=== PATIENT | male | born 1980 | race Caucasian/White ===

== ENCOUNTER 2017-07-17 15:19 | Emergency (ER) | payer BC ==
[2017-07-17 15:37] VITALS: BP 155/95
--- NOTE | 2017-07-17 16:06 | ED ---
Skin Complaint - HPI Summary HPI Summary: 36 yr old male with the complaint of tick bite right flank. Onset 6 pm yesterday. [place] and found couple tick on his clothes. He found one attached to his side this afternoon. He pulled part of it off. No other complaints. He has redness form the area where tick is attached about 1 inch in diameter. - History of Current Complaint Chief Complaint: [facility]CSkin Time Seen by Provider: 07/17/17 15:31 Stated Complaint: TICK Pain Intensity: 0 - Allergy/Home Medications Allergies/Adverse Reactions: Allergies Allergy/AdvReac Type Severity Reaction Status Date / Time Penicillins Allergy Rash Verified 07/17/17 15:39 PMH/Surg Hx/FS Hx/Imm Hx - Surgical History Surgery Procedure, Year, and Place: 2011 hernia surgery Infectious Disease History: No Infectious Disease History: Denies: Traveled Outside the [place] in Last 30 Days - Family History Known Family History: Positive: None - Social History Occupation: Employed Full-time Alcohol Use: Occasionally Substance Use Type: Reports: None Smoking Status (MU): Never Smoked Tobacco Review of Systems Constitutional: Negative Positive: Other - tick bite All Other Systems Reviewed And Are Negative: Yes Physical Exam Triage Information Reviewed: Yes Vital Signs On Initial Exam: Initial Vitals Temp Pulse Resp BP Pulse Ox 98.9 F 85 16 155/95 99 07/17/17 15:34 07/17/17 15:34 07/17/17 15:34 07/17/17 15:34 07/17/17 15:34 Vital Signs Reviewed: Yes Appearance: Positive: Well-Appearing, No Pain Distress Skin: Positive: Other - there is part of a tick imbedded in right flank. There is 2 inches diameter redness around the bite. Head/Face: Positive: Normal Head/Face Inspection Eyes: Positive: EOMI ENT: Positive: Normal ENT inspection Neck: Positive: Nontender Respiratory/Lung Sounds: Positive: Clear to Auscultation Abdomen Description: Negative: Distended Musculoskeletal: Positive: Strength/ROM Intact Neurological: Positive: Sensory/Motor Intact, Alert, Oriented to Person Place, Time, CN Intact II-III, Normal Gait, Speech Normal - Rod Coma Scale Best Eye Response: 4 - Spontaneous Best Motor Response: 6 - Obeys Commands Best Verbal Response: 5 - Oriented Coma Scale Total: 15 Procedures - Procedure Summary Procedure Summary: The tick area was prepped with alcohol prep and splinter forceps used to remove almost all of the tick. There is a very small black speck left, but no living tick. Diagnostics - Vital Signs Vital Signs Temp Pulse Resp BP Pulse Ox 07/17/17 15:34 98.9 F 85 16 155/95 99 - Laboratory Lab Statement: Any lab studies that have been ordered have been reviewed, and results considered in the medical decision making process. Course/Dx - Course Course Of Treatment: 36 yr old with removal of almost all the remaining tick. Will Rx with doxycycline, and remainder speck FB should work way out. FU with PMD for BP recheck. - Diagnoses Provider Diagnoses: Hypertension, Tick bite Discharge - Sign-Out/Discharge Documenting (check all that apply): Discharge/Admit/Transfer - Discharge Plan Condition: Good Disposition: HOME Prescriptions: DOXYcycline CAP(*) [DOXYcycline 100MG CAP(*)] 100 mg PO BID #20 cap Patient Education Materials: Lyme Disease (ED), Tick Bite (ED), Hypertension ( ED) Referrals: [facility] [place] [facility] REFERRAL [Outside] - 2 Days No Primary Care Phys,NOPCP [Primary Care Provider] - - Billing Disposition and Condition Condition: GOOD Disposition: HOME
== END 2017-07-17 16:17 | disposition home or self-care (01) ==
LOC: UCCORT 15:19
DX: I10 Essential (primary) hypertension (principal); S30.861A Insect bite (nonvenomous) of abdominal wall, initial encounter; W57.XXXA Bitten or stung by nonvenomous insect and other nonvenomous arthropods, initial encounter; Y93.9 Activity, unspecified; Y92.9 Unspecified place or not applicable; Z88.0 Allergy status to penicillin
CPT/HCPCS: 99212; G0463